=== PATIENT | male | born 1995 | race Caucasian/White ===

== ENCOUNTER 2018-12-14 08:32 | Emergency (ER) | payer OTHER ==
[~2018-12-14] VITALS: Ht 172.7 cm; Wt 61.4 kg
[2018-12-14 08:35] VITALS: BP 125/74
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
--- NOTE | 2018-12-14 08:59 | NUR ---
Patient being evaluated by DR SHEIKH at bedside.
[2018-12-14] MEDS ORDERED: LIDOCAINE 1% 500 MG/50 ML VIAL MC ONE (09:00)
[2018-12-14] MEDS ORDERED: HYDROcodone/APAP 5/325 MG 1 TAB TAB PO ONE (09:00)
--- NOTE | 2018-12-14 09:12 | NUR ---
I&D TO [facility] performed BY dr larry. PT TOLERATED PROCEDURE WELL.
[2018-12-14] MEDS ORDERED: LIDOCAINE MPF 1% 5mL VIAL ONE (09:14)
[2018-12-14 09:38] VITALS: BP 120/71
--- NOTE | 2018-12-14 09:38 | NUR ---
Patient discharged with v/s stable. Written and verbal after care instructions given and explained. Patient alert, oriented and verbalized understanding of instructions. Ambulatory with steady gait. All questions addressed prior to discharge. ID band removed. Patient advised to follow up with PMD. Rx of ULTRAM & BACTRIM given. Patient educated on indication of medication including possible reaction and side effects. Opportunity to ask questions provided and answered.
== END 2018-12-14 09:38 | disposition home or self-care (01) ==
LOC: MED 08:32
DX: L02.414 Cutaneous abscess of left upper limb (principal)
CPT/HCPCS: 10060; 99283; J2001

== ENCOUNTER 2018-12-16 21:07 | Emergency (ER) | payer OTHER ==
[~2018-12-16] VITALS: Ht 177.8 cm; Wt 59.0 kg
[2018-12-16 21:13] VITALS: BP 116/84
--- NOTE | 2018-12-16 23:35 | NUR ---
PATIENT CALLED TO PUT ON BED NO RESPONSE. PATIENT LEFT WITHOUT BEING SEEN BY DR. MACIEL. NO FURTHER CARE PROVIDED FOR PATIENT.
--- NOTE | 2018-12-16 23:40 | NUR ---
CALLED FOR THE SECOND TIME , NO RESPONSE
--- NOTE | 2018-12-16 23:45 | NUR ---
PATIENT CALLED FOR THE THIRD TIME, NO RESPONSE
== END 2018-12-16 23:35 | disposition left against medical advice (07) ==
LOC: MED 21:07
DX: L02.414 Cutaneous abscess of left upper limb (principal); Z53.21 Procedure and treatment not carried out due to patient leaving prior to being seen by health care provider

== ENCOUNTER 2018-12-17 09:44 | Emergency (ER) | payer SELFPAY ==
--- NOTE | 2018-12-17 10:18 | NUR ---
NO ANSWER IN ER LOBBY
== END 2018-12-17 10:18 | disposition left against medical advice (07) ==
LOC: MED 09:44
DX: Z48.01 Encounter for change or removal of surgical wound dressing (principal); Z53.21 Procedure and treatment not carried out due to patient leaving prior to being seen by health care provider